=== PATIENT | female | born 1965 | race Caucasian/White ===

== ENCOUNTER 2018-02-17 13:01 | Outpatient (REF) | payer BC, SELFPAY ==
[2018-02-17 13:51] LABS: ALT 17 U/L (12-78); AST 16 U/L (15-37); Albumin 3.7 g/dL (3.4-5.0); Alkaline Phosphatase 108 U/L (46-116); BUN 14 mg/dL (7-18); Bilirubin, Total 0.4 mg/dL (0.2-1.0); CREATININE 0.96 mg/dL (0.55-1.02); Calcium 8.9 mg/dL (8.5-10.1); Chloride 105 mmol/L (98-107); Cholesterol 212 mg/dL (50-200); Glucose 102 mg/dL (70-100); HDL Cholesterol 69 mg/dL (40-60); LDL CHOLESTEROL 136 mg/dL (<100); Potassium 4.1 mmol/L (3.5-5.1); Sodium 143 mmol/L (136-145); Total Protein 7.3 g/dL (6.4-8.2); Triglyceride 66 mg/dL (30-150)
[2018-02-18 10:17] LABS: Hepatitis C Ab w Rflx HCV PCR Negative (NEGAT)
== END 2018-02-17 13:21 ==
LOC: NCHCN 13:01
PROVIDERS: PCP Internal Medicine; Visit Provider Nurse Practitioner
DX: I10 Essential (primary) hypertension (principal); Z13.220 Encounter for screening for lipoid disorders; Z11.59 Encounter for screening for other viral diseases
CPT/HCPCS: 80053; 80061; 83721; 86803

== ENCOUNTER 2018-03-24 01:16 | Outpatient (CLI) | payer BC, SELFPAY ==
--- NOTE | 2018-03-24 13:00 | DI.MAMMO_ITS ---
SYMPTOM/DIAGNOSIS: SCREENING, Z12.39 MAMMOGRAMS: Mammograms were interpreted according to the usual protocol including computer analysis with CAD system, tomosynthesis and C view imaging. Comparison with prior examinations. Breast density C. No suspicious masses or microcalcifications are seen. There is no definite evidence of malignancy. IMPRESSION: Negative mammogram. Routine screening is recommended. Category I. MQSA ASSESSMENT OF FINDINGS: Negative. Category 1. Patient will receive a letter notifying them of these results. Bi-RADS category C. The breasts are heterogeneously dense, which may obscure small masses.
== END 2018-03-24 01:36 ==
PROVIDERS: PCP Internal Medicine; Visit Provider Nurse Practitioner
DX: Z12.31 Encounter for screening mammogram for malignant neoplasm of breast (principal)
CPT/HCPCS: 77063; 77067

== ENCOUNTER 2018-04-29 15:33 | Outpatient (REF) | payer BC, SELFPAY ==
--- NOTE | 2018-04-29 14:00 | PAPFT_PTH ---
PATIENT: Yumi Souza LOC: [facility] U#:[id number] AGE/SX: 52/F ROOM: RE04/29/[address]: Gogo Doss : 1965 BED: DIS: 04/29/2018 SPEC #: [id number] RECD: 04/29/18 17:23 STATUS: SHANNAN REWesly #: [id number] KYREE: 04/29/18 14:[address]: Gogo Doss DEPT: [facility] Cytology RECD BY: Joy Sanchez ENTERED: 04/29/18 17:24 SP TYPE: PAPFT OTHR DR: John Zarate Tissues: 1 - CX/ENDOCX FOR PAP SMEARS Procedures: PAP THIN PREP/UVM Screening HPV DNA PROBE Comments: [id number]
== END 2018-04-29 15:53 ==
LOC: LBN 15:33
PROVIDERS: PCP Internal Medicine; Visit Provider Obstetrics & Gynecology Gynecology
DX: Z12.4 Encounter for screening for malignant neoplasm of cervix (principal); Z11.51 Encounter for screening for human papillomavirus (HPV)
CPT/HCPCS: 88142; 87624

== ENCOUNTER 2019-01-19 10:03 | Outpatient (REF) | payer BC, SELFPAY ==
[2019-01-19 13:23] LABS: ALT 37 U/L (14-59); AST 25 U/L (15-37); Albumin 3.8 g/dL (3.4-5.0); Alkaline Phosphatase 133 U/L (46-116); Anion Gap 9.8 mmol/L (3-11); BUN 15 mg/dL (7-18); Bilirubin, Total 0.3 mg/dL (0.2-1.0); CO2 29.2 mmol/L (21.0-32.0); CREATININE 0.92 mg/dL (0.55-1.02); Calcium 9.5 mg/dL (8.5-10.1); Calculated LDL 130 mg/dL; Chloride 105 mmol/L (98-107); Cholesterol 203 mg/dL (50-200); Glucose 98 mg/dL (70-100); HDL Cholesterol 50 mg/dL (40-60); Magnesium 2.2 mg/dL (1.8-2.4); Potassium 4.1 mmol/L (3.5-5.1); Sodium 144 mmol/L (136-145); Total Protein 7.5 g/dL (6.4-8.2); Triglyceride 116 mg/dL (30-150); Vitamin B12 1544 pg/mL (193-986)
[2019-01-20 16:38] LABS: Lamotrigine 1.8 mcg/mL (2.5 - 15.0)
== END 2019-01-19 10:23 ==
LOC: NCHCN 10:03
PROVIDERS: PCP Internal Medicine; Visit Provider Nurse Practitioner Family
DX: Z00.00 Encounter for general adult medical examination without abnormal findings (principal); I10 Essential (primary) hypertension; R73.01 Impaired fasting glucose; R56.9 Unspecified convulsions; N95.1 Menopausal and female climacteric states; R06.83 Snoring; F33.9 Major depressive disorder, recurrent, unspecified; Z51.81 Encounter for therapeutic drug level monitoring; Z79.899 Other long term (current) drug therapy
CPT/HCPCS: 80053; 80061; 80175; 82607; 83735

== ENCOUNTER 2019-01-27 13:13 | Outpatient (REF) | payer BC, SELFPAY ==
[2019-01-27 22:20] LABS: GGT 33 U/L (5-55)
[2019-01-28 05:20] LABS: Vitamin D 25 Total 77.1 ng/ml (30-100)
== END 2019-01-27 13:33 ==
LOC: NCHCO 13:13
PROVIDERS: PCP Internal Medicine; Visit Provider Nurse Practitioner Family
DX: R74.8 Abnormal levels of other serum enzymes (principal)
CPT/HCPCS: 82306; 82977

== ENCOUNTER 2020-02-23 18:50 | Outpatient (REF) | payer BC, SELFPAY ==
[2020-02-23 22:27] LABS: Abs Immature Grans 0.01 10^3/uL (0.0-0.06); Absolute Basophil Count 0.02 10^3/uL (0.0-0.2); Absolute Eosinophil Count 0.13 10^3/uL (0.0-0.7); Absolute Lymphocyte Count 1.89 10^3/uL (1.2-3.4); Absolute Monocyte Count 0.41 10^3/uL (0.1-0.8); Absolute Neutrophil Count 2.65 10^3/uL (1.2-6.7); Basophils % 0.4; Eosinophils % 2.5; HCT 38.2 % (36.0-46.0); HGB 12.4 g/dL (11.2-15.7); Immature Grans % 0.2; MCH 29.9 pg (27.0-33.0); MCHC 32.5 % (32.0-36.0); MPV 10.7 fL (8.0-11.0); Neutrophils % 51.9; Nucleated RBC 0 %; Platelet Count 233 10^3/uL (130-400); RBC 4.15 10^6/uL (3.93-5.22); RDW 12.8 % (11.7-14.6); RDW-SD 42.9 fL; WBC 5.11 10^3/uL (4.4-10.8)
[2020-02-23 23:02] LABS: ALT 24 U/L (14-59); AST 21 U/L (15-37); Albumin 3.8 g/dL (3.4-5.0); Alkaline Phosphatase 119 U/L (46-116); Anion Gap 9.1 mmol/L (3-11); BUN 16 mg/dL (7-18); Bilirubin, Total 0.2 mg/dL (0.2-1.0); CO2 28.9 mmol/L (21.0-32.0); CREATININE 1.02 mg/dL (0.55-1.02); Calcium 8.9 mg/dL (8.5-10.1); Calculated LDL 133 mg/dL (<100); Chloride 104 mmol/L (98-107); Cholesterol 204 mg/dL (<200); Estimated GFR 56.06 (mL/min/1.73m2); Glucose 93 mg/dL (74-106); HDL Cholesterol 58 mg/dL (40-60); Magnesium 2.2 mg/dL (1.8-2.4); Potassium 3.8 mmol/L (3.5-5.1); Sodium 142 mmol/L (136-145); Total Protein 7.1 g/dL (6.4-8.2); Triglyceride 68 mg/dL (<150)
[2020-02-23 23:27] LABS: PHOSPHORUS 4.5 mg/dL (2.6-4.7)
== END 2020-02-23 19:10 ==
LOC: NCHCN 18:50
PROVIDERS: PCP Internal Medicine; Visit Provider Family Medicine
DX: R74.8 Abnormal levels of other serum enzymes (principal); C21.0 Malignant neoplasm of anus, unspecified
CPT/HCPCS: 80053; 80061; 83735; 84100; 85025

== ENCOUNTER 2020-04-12 01:47 | Outpatient (CLI) | payer BC, SELFPAY ==
--- NOTE | 2020-04-12 | DI.DEXA_ITS ---
EXAM: XR DEXA BONE DENSITY W/WO ALCON CLINICAL HISTORY: ELEVATED ALK PHOS,R74.8 TECHNIQUE: RFinity Horizon C densitometer. COMPARISON: No exams were available for comparison FINDINGS: The bone mineral density measurements of the lumbar spine correspond to a total T-score of -3.3, in t he osteoporotic range. The bone mineral density measurements of the left hip correspond to a total T-score of -1.3 and a fem oral neck T-score of -1.5, in the osteopenic range. The left forearm bone mineral density measurements correspond to a T-score of the distal 3rd of -1.3, also consistent with osteopenia. The lateral industrial engineering intern view of the thoracic and lumbar spine shows no evidence of compression fractures. IMPRESSION: Osteopenia of the left hip and left forearm. Osteoporosis of the lumbar spine.
--- NOTE | 2020-04-12 16:11 | DI.MAMMO_ITS ---
EXAM: MG MAMMO SCREENING CLINICAL HISTORY: SCREENING,Z12.31. TECHNIQUE: Bilateral full field digital CC and MLO mammographic images were obtained with 3D tomosyn thesis and utilizing computer aided detection (CAD). COMPARISON: Prior mammograms dating back to 2014, the most recent being March 2018. FINDINGS: The fibroglandular tissue is again noted to be dense, this decreasing the sensitivity mammogram for f inding hidden underlying lesions. There are no spiculated masses nor malignant appearing microcalcification groups. Benign micro and ma crocalcifications are again noted in both breasts including benign appearing microcalcification group s. There is no significant architectural distortion nor skin thickening-retraction. IMPRESSION: Dense bilateral fibroglandular tissue. No obvious radiographic evidence of malignancy. BI-RADS Category 2 - Benign Findings Breast Density - Category C - Heterogeneously dense Breast density Category C or D implies that the patient has dense breast tissue. Dense breast tissue can make it harder to find cancer on a mammogram. Dense breast tissue is also associated with an incr eased risk of breast cancer. This information about the result of the mammogram report was provided to the patient to raise their awareness. Use this report when you speak with the patient about their risks for breast cancer, which includes their family history. At that time, you may recommend additional screening tests (Ultrasoun d or MRI) as these tests may add significant information. A negative radiographic report should not delay biopsy if a dominant or clinically suspicious mass is present. Up to ten percent of cancers are not identified on mammography. A negative report may reinforce clinical impression. Adenosis and dense breasts may obscure an underlying neoplasm. False positive reports average 6 to 10%. Patient will receive a letter notifying them of these results.
== END 2020-04-12 02:07 ==
PROVIDERS: PCP Internal Medicine; Visit Provider Family Medicine
DX: Z12.31 Encounter for screening mammogram for malignant neoplasm of breast (principal); M81.0 Age-related osteoporosis without current pathological fracture; M85.88 Other specified disorders of bone density and structure, other site; R74.8 Abnormal levels of other serum enzymes
CPT/HCPCS: 77063; 77067; 77080

== ENCOUNTER 2020-08-17 15:19 | Outpatient (REF) | payer BC, SELFPAY ==
[2020-08-17 20:34] LABS: Bilirubin Negative (Negative); Blood Negative (Negative); Clarity Clear (Clear); Glucose Negative (Negative); Ketones Negative (Negative); Leukocyte Esterase Small (Negative); Nitrite Negative (Negative); Specific Gravity 1.015 (1.005-1.025); Urobilinogen 0.2 EU/dL (Up TO 0.2)
[2020-08-17 20:49] LABS: Bacteria Negative HPF (Negative); C & S Indicated? Yes; Casts Negative LPF (Negative); Crystals Negative HPF (Negative); Epithelial Cells Few HPF (Negative); Mucus Negative (Negative); Other Cells Negative (Negative); RBC 0-2 HPF (0-2); WBC 0-2 HPF (0-5)
== END 2020-08-17 15:20 | disposition home or self-care (01) ==
LOC: NCHCN 15:19
PROVIDERS: PCP Internal Medicine; Visit Provider Nurse Practitioner Family
DX: R30.0 Dysuria (principal)
CPT/HCPCS: 87077; 81003; 81015; 87086; 87186

== ENCOUNTER 2021-01-12 13:02 | Outpatient (REF) | payer BC, SELFPAY ==
[2021-01-12 21:04] LABS: ALT 28 U/L (14-59); AST 17 U/L (15-37); Alkaline Phosphatase 125 U/L (46-116); BUN 13 mg/dL (7-18); Bilirubin, Total 0.3 mg/dL (0.2-1.0); CREATININE 0.9 mg/dL (0.55-1.02); Calcium 9.3 mg/dL (8.5-10.1); Chloride 108 mmol/L (98-107); Glucose 97 mg/dL (74-106); Magnesium 2.1 mg/dL (1.8-2.4); Potassium 4.5 mmol/L (3.5-5.1); Sodium 145 mmol/L (136-145); Total Protein 7.6 g/dL (6.4-8.2); Vitamin B12 491 pg/mL (193-986)
[2021-01-16 13:18] LABS: Lamotrigine 2.3 mcg/mL (2.5 - 15.0)
== END 2021-01-12 13:03 | disposition home or self-care (01) ==
LOC: NCHCN 13:02
PROVIDERS: PCP Internal Medicine; Visit Provider Nurse Practitioner Family
DX: R74.8 Abnormal levels of other serum enzymes (principal); M81.0 Age-related osteoporosis without current pathological fracture
CPT/HCPCS: 80053; 80175; 82607; 83735

== ENCOUNTER 2021-12-24 16:10 | Outpatient (REF) | payer BC, SELFPAY ==
[2021-12-24 15:38] LABS: Vitamin D 25 Total 57.8 ng/mL (30-100)
[2021-12-24 15:42] LABS: ALT 36 U/L (14-59); AST 23 U/L (15-37); Albumin 4.1 g/dL (3.4-5.0); Alkaline Phosphatase 108 U/L (46-116); Anion Gap 9.7 mmol/L (3-11); BUN 15 mg/dL (7-18); Bilirubin, Total 0.3 mg/dL (0.2-1.0); CO2 28.3 mmol/L (21.0-32.0); CREATININE 0.9 mg/dL (0.55-1.02); Calcium 9.7 mg/dL (8.5-10.1); Chloride 102 mmol/L (98-107); Glucose 104 mg/dL (74-106); Magnesium 2.3 mg/dL (1.8-2.4); Potassium 4.2 mmol/L (3.5-5.1); Sodium 140 mmol/L (136-145); Total Protein 8.5 g/dL (6.4-8.2); Vitamin B12 312 pg/mL (193-986)
[2021-12-26 12:58] LABS: Lamotrigine 2.3 mcg/mL (2.5 - 15.0)
== END 2021-12-24 16:11 | disposition home or self-care (01) ==
LOC: NCHCN 16:10
PROVIDERS: PCP Internal Medicine; Visit Provider Nurse Practitioner Family
DX: M81.0 Age-related osteoporosis without current pathological fracture (principal); I10 Essential (primary) hypertension; G47.00 Insomnia, unspecified; C21.0 Malignant neoplasm of anus, unspecified; K22.70 Barrett's esophagus without dysplasia; R56.9 Unspecified convulsions; F41.9 Anxiety disorder, unspecified
CPT/HCPCS: 80053; 80175; 82306; 82607; 83735

== ENCOUNTER 2022-02-04 10:00 | Day surgery (SDC) | payer BC, SELFPAY ==
--- NOTE | 2022-02-03 18:21 | W.PM.DSUDISC ---
Date of service: 02/04/22 Time of Service: 11:31 Discharge Plan Disposition Patient Disposition: HOME Condition: Good Discharge Details Reason For Visit: EGD Attending Provider: Michael Dobson Primary Care Provider: John Zarate Home Meds and New Rx's Prescriptions: Continued Daily Multiple 1 EACH tablet 1 ea PO DAILY sumatriptan succinate 50 mg tablet See Rx Instructions PO .COMPLEX Qty: 30 1RF Dose Instruction: take 1 tab at onset of headache; if no relief may repeat 1 tab in 2hr; max = 4 tabs/day (24hr) PO Rx Instructions: take 1 tab at onset of headache; if no relief may repeat 1 tab in 2hr; max = 4 tabs/day (24hr) PO cholecalciferol (vitamin D3) 25 mcg (1,000 unit) capsule 25 mcg PO DAILY calcium-vitamin D2-soybean 500-100-28 mg-units-mg tablet 1 tab PO diphenhydramine-acetaminophen [Tylenol PM Extra Strength] 25-500 mg tablet 1 tab PO QHS PRN loratadine [Claritin] 10 mg tablet 10 mg PO DAILY omeprazole 20 mg capsule,delayed release(DR/EC) 20 mg PO HS valacyclovir [Valtrex] 1 gram tablet 1,000 mg PO DAILY PRN melatonin-lemon balm leaf extr 10-1 mg tablet 1 tab PO HS clobetasol 0.05 % cream 1 applic topical BID PRN ibuprofen [Advil] 200 mg tablet 400 mg PO Q6H PRN latanoprost 0.005 % drops 1 drp ophthalmic (eye) DAILY lamotrigine 200 MG tablet 100 mg PO HS citalopram 20 mg tablet 20 mg PO DAILY Discontinued polyethylene glycol 3350 17 gram/dose powder 238 g PO ONCE Qty: 238 0RF Rx Instructions: take per colonoscopy instructions bisacodyl [Dulcolax (bisacodyl)] 5 mg tablet,delayed release (DR/EC) 5 mg PO ONCE Qty: 4 0RF Rx Instructions: take per colonoscopy instructions Discharge Instructions Instructions: Holm Esophagus (GEN) Additional Instructions: 1. If tolerated, consume a soft, low fiber diet for 1-2 days. 2. You may experience a sore throat for 24 to 48 hours. You may use throat lozenges or gargle with warm salt water to relieve the discomfort. 3. Because air was put into your stomach during the procedure, you may experience some belching. 4. Go directly to the emergency room if you notice any of the following: Develop chills (warm to touch), or if you have a thermometer and your temperature is above 101 Difficulty breathing or difficultly swallowing Persistent vomiting Severe abdominal pain, other than gas cramps Severe chest pain Black, tarry stools Any bleeding ? exceeding one tablespoon 5 Call your physician if the site where your intravenous was started becomes red, swollen, painful, and warm to touch. 6. Your physician has reviewed your pre-procedure medications. Please continue to take those medications as previously ordered. You will be given specific information/education regarding any changes to your medications before leaving. Activity:: Activity as Tolerated Activity:: Activity as Tolerated Equipment/Supplies:: No Equipment Needed Diet:: As Tolerated DS: Diagnosis Discharge Diagnosis (1) History of Holm's esophagus: Status: Acute Asessment and Plan: I will notify you when the results of the biopsies are available, to plan for the next steps in monitoring the Holm's esophagus. In the meantime continue to take your omeprazole to keep your symptoms under control.
--- NOTE | 2022-02-03 18:25 | COLE_ITS ---
Date of service: 02/04/22 Time of Service: 11:34 Colonoscopy Report Date of procedure: 02/04/22 Pre-op diagnosis general: Holm's esophagus Post-op diagnosis procedure note: same Procedure: Diagnostic EGD with biopsies Surgeon: Michael Dobson Anesthesia Type: General:No Airway Estimated blood loss (mL): 10 Pathology: other (Four-quadrant biopsies of GE junction) Complications: None Disposition: same day Indications: Yumi is a 56-year-old woman with history of Holm's esophagus. She is here for for surveillance EGD with biopsies Procedure Start Time: :18 Procedure End Time: :24 Findings: Short segment Holm's esophagus Procedure Description: After the initiation of monitored anesthetic care, and with the assistance of a bite block, I advanced a standard gastroscope through the mouth past the hypopharynx and into the esophagus.? Under the direct vision of the scope, I advanced down the esophagus into the stomach.? Once I entered the stomach, I performed a brief inspection, followed by retroflexion towards the gastric cardia.? This appeared normal.? After that, I gently advanced the scope around the incisura angularis and examined the pylorus.? This also appeared normal.? Next, I advanced the scope through the pylorus into the duodenum.? The mucosa w as pink and healthy appearing.? There were no abnormalities.? I was able to visualize bile draining into the duodenum through the ampulla Vater. ?Next, I began retracting the endoscope.? I brought the camera back into the stomach. There were 2 gastric polyps in the body of the stomach. I performed polypectomy with cold forceps.? I then gently desufflated some of the stomach, and withdrew the endoscope into the distal esophagus. The GE junction was at 40 cm. There was a short segment of Holm's esophagus extending from about 38 cm. I performed four-quadrant biopsy. ?Finally, I withdrew the scope along the length of the esophagus taking great care to examine the entirety of the mucosa.? I did not appreciate any abnormalities.
[2022-02-04 10:05] VITALS: BP 140/72; PULSE 88; RESP 18; TEMP 36.2; O2SAT 100
[2022-02-04] MEDS: Lactated Ringers 1,000 ML 80 ML IV (10:41)
--- NOTE | 2022-02-04 10:43 | W.ANESPRE ---
General Info Date of Service Date Performed: 02/04/22 Height: 5 ft 3 in Weight: 71.2 kg Body Mass Index (BMI): 27.8 Surgical Procedure: Operation Date: 02/04/22 11:20 Proposed Procedure Side Surgeon p Gastroscopy Michael Dobson MD Meds Allergies and Home Medications Allergies Allergy/AdvReac Type Severity Reaction Status Date / Time No Known Allergies Allergy Unverified 02/04/22 10:21 Home Medication Medication Instructions Recorded lamotrigine 200 mg tablet 100 mg PO HS 08/09/12 multivitamin-ferrous 1 ea PO DAILY 04/10/15 fumarate-folic acid 18 mg-400 mcg tablet (Daily Multiple) sumatriptan succinate 50 mg tablet See Rx Instructions PO .COMPLEX 05/04/18 #30 tabs calcium-vitamin D2-soybean 500 1 tab PO 01/08/22 mg-100 unit-28 mg tablet cholecalciferol (vitamin D3) 25 25 mcg PO DAILY 01/08/22 mcg (1,000 unit) capsule clobetasol 0.05 % topical cream 1 applic topical BID PRN 01/08/22 diphenhydramine 25 1 tab PO QHS PRN 01/08/22 mg-acetaminophen 500 mg tablet (Tylenol PM Extra Strength) ibuprofen 200 mg tablet (Advil) 400 mg PO Q6H PRN 01/08/22 latanoprost 0.005 % eye drops 1 drp ophthalmic (eye) DAILY 01/08/22 loratadine 10 mg tablet (Claritin) 10 mg PO DAILY 01/08/22 melatonin 10 mg-lemon balm leaf 1 tab PO HS 01/08/22 extract 1 mg tablet omeprazole 20 mg capsule,delayed 20 mg PO HS 01/08/22 release valacyclovir 1 gram tablet 1,000 mg PO DAILY PRN 01/08/22 (Valtrex) citalopram 20 mg tablet 20 mg PO DAILY 01/28/22 Current Visit Medications: Current Medications Generic Name Dose Route Start Last Admin Trade Name Freq PRN Reason Stop Dose Admin Hyoscyamine Sulfate 0.125 mg 02/03/22 18:25 Hyoscyamine 0.125 Mg Sl/Oral/Chew SL DIRECTED PRN Ringer's Solution 1,000 mls @ 80 mls/hr 02/04/22 06:00 02/04/22 10:41 IV 02/13/22 23:59 80 mls/hr INFUSION JAVID Administration IV Miscellaneous Supplies 1 each 02/04/22 06:00 Iv Access IV 02/13/22 23:59 DIRECTED JAVID Ondansetron HCl 4 mg 02/03/22 18:25 Ondansetron 4 Mg/2 Ml Vial IVP Q4H PRN PRN Nausea / Vomiting Sodium Chloride 0 ml 02/04/22 06:00 Normal Saline Flush 10 Ml Syr IV 02/13/22 23:59 PRN PRN Sodium Chloride 0 ml 02/04/22 06:00 Normal Saline 10 Ml Vial IJ 02/13/22 23:59 DIRECTED PRN Sterile Water 0 ml 02/04/22 06:00 Water,Injection,Sterile 10 Ml Vial IJ 02/13/22 23:59 DIRECTED PRN PFSH Active Problems Active Problems: Problem Status Onset Code History of creation of ostomy Z93.9 Hepatic hemangioma D18.03 Hypertension I10 Glaucoma H40.9 History of Holm's esophagus Z87.19 Insomnia Depression Seizure disorder Squamous cell carcinoma of anal margin ~2012 Constipation by outlet obstruction Menstrual migraine 01/25/13 G43.829 Medical History Medical History Anxiety Menstrual migraine Long-term OCP use. Will cease 04/2018 Osteoporosis Surgical History Surgical History History of colonoscopy (~2016) History of esophagogastroduodenoscopy (EGD) (~2018) Tobacco Smoking/Tobacco Use Status: Never Alcohol Alcohol Intake: current Alcohol intake frequency: a few times a week Substance Use Substance use: Never Substance use type: does not use Prental History History 2 Para 2 Hx # Term Pregnancies 2 Multiple births Hx # Pregnancies Ectopic pregnancies AB induced Hx Number of Living Children 1 AB spontaneous Vital Signs and Lab Results Vital Signs Most Recent Vital Signs in EMR: Most Recent Vital Signs Temp Pulse Resp BP Pulse Ox 36.2 C L 88 18 140/72 100 02/04/22 10:05 02/04/22 10:05 02/04/22 10:05 02/04/22 10:05 02/04/22 10:05 Lab Results Blood Type / Crossmatch: No Data to Display Complete Blood Count: No Data to Display Complete Metabolic Panel: No Data to Display Liver Function Panel: No Data to Display Coagulation Panel: No Data to Display Cardiac Panel: No Data to Display Arterial Blood Gas: No Data to Display Venous Blood Gas: No Data to Display Pancreas Panel: No Data to Display Thyroid Panel: No Data to Display Infectious Disease: No Data to Display Blood Cultures: No Data to Display Toxicology Panel: No Data to Display Anesthesia Assessment and Plan Anesthesia History Personal History: No History of Anesthesia Complications Family History: No Family History of Anesthesia Complications Exercise Tolerance Exercise Tolerance: Metabolic Equivalents>4 Pertinent Negatives Pertinent Negatives: No Symptoms of GERD, No Major Cardiovascular Symptoms or Complaints and No Major Pulmonary Symptoms or Complaints Cardiac & Pulmonary Exam Cardiac Exam: Normal S1/S2 Heart Sounds Pulmonary Exam: Clear Bilateral Breath Sounds Implantable Cardiac Device Does patient have a Pacemaker or an ICD?: No Airway Exam Known Difficult Airway: No Mallampati Class: 1 Mouth Opening: Normal (> 3cm) Thyromental Distance: Greater than 3 cm Neck Range of Motion: Full ROM Neck Circumference: Normal Teeth Condition: Normal Dentition ASA Classification ASA Score: ASA 2 Emergency Case?: No NPO Status NPO Status: NPO Clears >2 hours, Solids >8 hours Anesthesia Plan Resuscitation Status: Full Code Anesthesia Technique: General Anesthesia Airway Planned: Natural Airway Monitors Used: Standard Monitors Preoperative Comments:: No seizure activity for several years
[2022-02-04 10:48] VITALS: BMI 27.8
--- NOTE | 2022-02-04 11:20 | ESO_PTH ---
PATIENT: Yumi Souza LOC: [facility] U#:[id number] AGE/SX: 56/F ROOM: RE02/04/[address]: Michael Dobson MD : 1965 BED: DIS: 02/04/2022 SPEC #: [id number] RECD: 02/04/22 13:21 STATUS: SHANNAN RE #: [id number] KYREE: 02/04/22 11:[address]: Michael Dobson DEPT: Surgical Specimen RECD BY: Joy Sanchez ENTERED: 02/04/22 13:22 SP TYPE: Eso OTHR DR: John Zarate Tissues: 1 - ESOPHAGUS BIOPSY 2 - ESOPHAGUS BIOPSY Procedures: GROSS AND MICRO LEVEL 4 Comments: [id number]
[2022-02-04 11:31] VITALS: BP 107/58; PULSE 78; RESP 17; TEMP 36.6; O2SAT 94
[2022-02-04 11:55] VITALS: BP 123/64; PULSE 69; RESP 18; TEMP 36.6; O2SAT 100
--- NOTE | 2022-02-04 12:28 | W.ANESPOSTOP ---
Postoperative Evaluation Date, Time and Location Date Performed: 02/04/22 Time Performed: 11:55 Patient Location: Day Surgery Unit Vital Signs Most Recent Imported Vital Signs: Most Recent Vital Signs Temp Pulse Resp BP Pulse Ox 36.6 C 69 18 123/64 100 02/04/22 11:55 02/04/22 11:55 02/04/22 11:55 02/04/22 11:55 02/04/22 11:55 Pain Score Most Recent Pain Score: Most Recent Pain Score Pain Level 0 02/04/22 11:55 Assessment Mental Status: Awake (Alert & Oriented to Patient Baseline) Airway and Respiratory Function: Patent airway with normal (patient baseline) respiratory exam Cardiovascular Function: Hemodynamically Stable Hydration Status: Adequately Hydrated Nausea & Vomiting: No Nausea or Vomiting Pain: Pt. Denies Any Pain Peripheral Nerve Block: Patient did not receive a nerve block
== END 2022-02-04 12:08 | disposition home or self-care (01) ==
PROVIDERS: PCP Internal Medicine; Visit Provider Surgery
PROC: 0DJ68ZZ Inspection of Stomach, Via Natural or Artificial Opening Endoscopic (ICD-10-PCS; CPT 43235; principal; 2022-02-04 11:15)
DX: K22.70 Barrett's esophagus without dysplasia (principal); K31.7 Polyp of stomach and duodenum; K22.89 Other specified disease of esophagus
CPT/HCPCS: 43239; 88305; J2405

== ENCOUNTER 2023-01-02 14:05 | Outpatient (REF) | payer BC, SELFPAY ==
[2023-01-02 17:02] LABS: Vitamin D 25 Total 49.3 ng/mL (30-100)
[2023-01-02 17:28] LABS: BUN 22 mg/dL (7-18); CREATININE 0.8 mg/dL (0.55-1.02); Calcium 9.5 mg/dL (8.5-10.1); Calculated LDL 139 mg/dL (<100); Chloride 107 mmol/L (98-107); Cholesterol 205 mg/dL (<200); Estimated GFR 84.82 (mL/min/1.73m2); Glucose 95 mg/dL (74-106); HDL Cholesterol 53 mg/dL (40-60); Magnesium 2.4 mg/dL (1.8-2.4); Potassium 5.3 mmol/L (3.5-5.1); Sodium 146 mmol/L (136-145); Triglyceride 69 mg/dL (<150); Vitamin B12 566 pg/mL (193-986)
[2023-01-04 12:16] LABS: Lamotrigine 3.5 mcg/mL (3.0-15.0)
== END 2023-01-02 14:06 | disposition home or self-care (01) ==
LOC: NCHCN 14:05
PROVIDERS: PCP Internal Medicine; Visit Provider Nurse Practitioner Family
DX: M81.0 Age-related osteoporosis without current pathological fracture (principal); R74.8 Abnormal levels of other serum enzymes; Z86.79 Personal history of other diseases of the circulatory system; Z00.00 Encounter for general adult medical examination without abnormal findings
CPT/HCPCS: 80048; 80061; 80175; 82306; 82607; 83735

== ENCOUNTER → 2023-02-03 02:53 | Outpatient (CLI) | payer BC, SELFPAY ==
--- NOTE | 2023-02-03 14:10 | DI.MAMMO_ITS ---
Exam(s) MAMMO SCREENING EXAM: MAMMO SCREENING CLINICAL HISTORY: SCREENING, Z12.31 TECHNIQUE: Mammograms were interpreted according to the usual protocol including computer analysis w [employer] CAD system, tomosynthesis and C-view imaging. COMPARISON: 2014 through 2020 FINDINGS: The breasts are composed of heterogeneously dense fibroglandular densities, Breast Density category C . No suspicious masses or suspicious microcalcifications are seen. Benign calcifications again noted i n both breasts. No skin thickening or abnormal axillary lymph nodes are seen. There has been no significant change from prior exams. IMPRESSION: BI-RADS Category 1, Negative mammogram. BI-RADS Category 2 - Benign Findings Yearly screening mammography is recommended. Breast Density Category C, heterogeneously Dense. The mammogram demonstrates the patient's breast tissue is dense. Dense breast tissue is very common a nd is not abnormal but dense breast tissue can make it harder to find cancer on a mammogram. Also, de nse breast tissue may increase breast cancer risk. This information about the result of the mammogram report was provided to the patient to raise their awareness. Use this report when you speak with the patient about their risks for breast cancer, which includes their family history. At that time, you may recommend additional screening tests (Ultrasound or MRI) as they might be useful based on their r isk. A negative radiographic report should not delay biopsy if a dominant or clinically suspicious mass is present. Up to ten percent of cancers are not identified on mammography. A negative report may reinforce clinical impression. Adenosis and dense breasts may obscure an underlying neoplasm. False positive reports average 6 to 10%.
== END ==
PROVIDERS: PCP Internal Medicine; Visit Provider Nurse Practitioner Family
DX: Z12.31 Encounter for screening mammogram for malignant neoplasm of breast (principal); R92.333 Mammographic heterogeneous density, bilateral breasts
CPT/HCPCS: 77063; 77067

== ENCOUNTER 2023-04-24 15:50 | Outpatient (REF) | payer BC, SELFPAY ==
[2023-04-24 22:11] LABS: Anion Gap 10.8 mmol/L (3-11); BUN 19 mg/dL (7-18); CO2 28.2 mmol/L (21.0-32.0); CREATININE 0.8 mg/dL (0.55-1.02); Chloride 105 mmol/L (98-107); Estimated GFR 84.82 (mL/min/1.73m2); Glucose 111 mg/dL (74-106); Magnesium 2.1 mg/dL (1.8-2.4); Potassium 4.1 mmol/L (3.5-5.1); Sodium 144 mmol/L (136-145); TSH (W/Ref FT4) 2.18 uIU/mL (0.36-3.74)
== END 2023-04-24 15:51 | disposition home or self-care (01) ==
LOC: NCHCN 15:50
PROVIDERS: PCP Internal Medicine; Visit Provider Nurse Practitioner Family
DX: E87.0 Hyperosmolality and hypernatremia (principal); R00.2 Palpitations
CPT/HCPCS: 80048; 83735; 84443

== ENCOUNTER → 2023-06-26 04:49 | Outpatient (CLI) | payer BC, SELFPAY ==
--- NOTE | 2023-06-26 | DI.DEXA_ITS ---
Exam(s) XR DEXA BONE DENSITY W/WO ALCON EXAM: XR DEXA BONE DENSITY W/WO ALCON CLINICAL HISTORY: M81.0 Age related osteoporosis w/o current pathologicial fracture TECHNIQUE: COMPARISON: CR XR DEXA BONE DENSITY W/WO ALCON from 04/12/2020 FINDINGS: Lateral Spine Image: Unremarkable. No compression deformities identified. Left hip: Total T-Score: -1.5. This compares to -1.3 on the prior examination. Total Z-Score: -0.6 T- and Z-scores: Findings are consistent with osteopenia. Lumbar Spine: Total T-Score: -3.2. This compares to -3.3 on the prior examination. Total Z-Score: -1.8 T- and Z-scores: Findings are consistent with osteoporosis. IMPRESSION: Osteoporosis in the lumbar spine.
== END ==
LOC: DI 04:50
PROVIDERS: PCP Internal Medicine; Visit Provider Nurse Practitioner Family
DX: M81.0 Age-related osteoporosis without current pathological fracture (principal); M85.88 Other specified disorders of bone density and structure, other site
CPT/HCPCS: 77080

== ENCOUNTER 2023-08-28 14:07 | Outpatient (REF) | payer BC, SELFPAY ==
--- NOTE | 2023-08-28 13:10 | PAPFT_PTH ---
PATIENT: Yumi Souza LOC: [facility] U#:[id number] AGE/SX: 58/F ROOM: RE08/28/[address]: Gogo Doss : 1965 BED: DIS: 08/28/2023 SPEC #: [id number] RECD: 08/28/23 18:13 STATUS: SHANNAN REQ #: [id number] KYREE: 08/28/23 13:[address]: Gogo Doss DEPT: [facility] Cytology RECD BY: Joy Sanchez ENTERED: 08/28/23 18:13 SP TYPE: PAPFT JESSE DR: Mis Kidd Tissues: 1 - CX/ENDOCX FOR PAP SMEARS Procedures: PAP THIN PREP/UVM Screening HPV DNA PROBE Comments: [id number] (HPV 16 & 18/45)
== END 2023-08-28 14:08 | disposition home or self-care (01) ==
LOC: LBN 14:07
PROVIDERS: PCP Nurse Practitioner Family; Visit Provider Obstetrics & Gynecology Gynecology
DX: Z12.4 Encounter for screening for malignant neoplasm of cervix (principal); Z11.51 Encounter for screening for human papillomavirus (HPV); R87.810 Cervical high risk human papillomavirus (HPV) DNA test positive
CPT/HCPCS: 88142; 87624

== ENCOUNTER 2023-11-14 07:41 | Day surgery (SDC) | payer BC, SELFPAY ==
--- NOTE | 2023-11-13 13:15 | W.PREOPHP ---
Assessment and Plan Assessment and plan (1) Encounter for screening colonoscopy: Status: Acute Assessment and plan: Yumi had another chance to ask any questions about the procedure. I explained the risks and the benfits of colonoscopy and we can proceed as planned. History of Present Illness History of Present Illness Chief Complaint: screening colonoscopy Narrative: 58 y/o female with history of anal cancer (s/p chemo/radiation in 2012; colostomy revision and resetting and repair of parastomal hernia), depression, HTN, seizure disorder (last seizures was in 2005) presents for colonoscopy screening pre-op. Her last screening was in 2015 and was unremarkable With recommended follow up in 3-5 years. She denies a family history of colon cancer. She denies any changes in bowel habits including bloody or black tarry stools, abdominal pain, diarrhea or constipation. She denies constitutional symptoms. To provide some detail in the surgical history, she is undergone abdominal perineal resection, with an end colostomy. There is no rectal stump to evaluate today. She denies chest pain, palpitations, dyspnea or dyspnea with exertion. She denies prior history or family history of adverse reactions or complications with anesthesia. The patient denies any history of stroke, [place], bleeding or clotting disorders. She denies having any implanted metal in her body. Since her last office visit there have been no significant changes to the interval history. PFSH All Active Problems Encounter for screening colonoscopy (Acute) Osteoporosis (Chronic) History of creation of ostomy (Acute) Hepatic hemangioma (Acute) Hypertension (Chronic) Glaucoma (Chronic) History of Holm's esophagus (Acute) Insomnia (Acute) Depression (Chronic) Stable Menstrual migraine (Acute 01/25/13) Medical History Anxiety Surgical History History of rectal surgery removal of anus secondary to anal cancer. History of esophagogastroduodenoscopy (EGD) (~01/2022) 2019 History of colonoscopy (~2017) Family History Mother No problems noted. Father No problems noted. 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 Pets and animals: Yes Seatbelt use: always Do you feel safe at home: Yes Do you feel safe in your relationship?: Yes Female Reproductive History Menstrual control method: pills History History 2 Para 2 Hx # Term Pregnancies 2 Multiple births Hx # Pregnancies Ectopic pregnancies AB induced Hx Number of Living Children 1 AB spontaneous Meds Allergies and Home Medications Allergies Allergy/AdvReac Type Severity Reaction Status Date / Time No Known Allergies Allergy Verified 11/14/23 08:29 Home Medications ?Medication ?Instructions ?Recorded ?Confirmed ?Type lamotrigine 200 mg tablet 100 mg PO HS 08/09/12 11/14/23 History multivitamin-ferrous 1 ea PO DAILY 04/10/15 11/12/23 History fumarate-folic acid 18 mg-400 mcg tablet (Daily Multiple) calcium-vitamin D2-soybean 500 1 tab PO DAILY 01/08/22 11/14/23 History mg-100 unit-28 mg tablet cholecalciferol (vitamin D3) 25 25 mcg PO DAILY 01/08/22 11/14/23 History mcg (1,000 unit) capsule clobetasol 0.05 % topical cream 1 applic topical BID PRN 01/08/22 11/12/23 History diphenhydramine 25 1 tab PO QHS PRN 01/08/22 11/12/23 History mg-acetaminophen 500 mg tablet (Tylenol PM Extra Strength) ibuprofen 200 mg tablet (Advil) 400 mg PO Q6H PRN 01/08/22 11/12/23 History loratadine 10 mg tablet (Claritin) 10 mg PO DAILY 01/08/22 11/14/23 History melatonin 10 mg-lemon balm leaf 1 tab PO HS 01/08/22 11/12/23 History extract 1 mg tablet omeprazole 20 mg capsule,delayed 20 mg PO HS 01/08/22 11/14/23 History release valacyclovir 1 gram tablet 1,000 mg PO DAILY PRN 01/08/22 11/12/23 History (Valtrex) citalopram 20 mg tablet 20 mg PO DAILY 01/28/22 11/14/23 History Bacillus coagulans-inulin 1 1 cap PO DAILY 08/28/23 11/14/23 History billion cell-250 mg capsule (Probiotic with Prebiotic) Exam Const General: cooperative, healthy appearing and not in acute distress Neck Neck: normal visual inspection, no lymphadenopathy and supple Resp Effort & Inspection: normal respiratory effort Auscultation: clear to auscultation bilaterally Cardio Jugular venous pressure: no JVD Rate: regular rate Rhythm: regular rhythm Heart Sounds: S1 normal and S2 normal Neuro General: patient alert, patient awake and patient oriented x3 Psych Appearance: grossly normal
--- NOTE | 2023-11-13 13:18 | W.COLOREPORT ---
Date of service: 11/14/23 Time of Service: 10:27 Colonoscopy Report Date of procedure: 11/14/23 Pre-op diagnosis general: screening colonoscopy Post-op diagnosis procedure note: same Procedure: colonoscopy Surgeon: Michael Dobson Anesthesia Type: General:No Airway Estimated blood loss (mL): 0 Pathology: none sent Complications: None Disposition: same day Indications: Yumi is a 58 year old woman who needs her next screening colonoscopy Prep: Miralax/Dulcolax Procedure Start Time: 10:00 Procedure End Time: 10:19 Retraction Time: 6 Findings: Negative screening colonoscopy Procedure Description: After the induction of anesthesia, and with the patient in supine, I began by performing an external exam.? The skin surrounding the colostomy was healthy appearing, and the external portion of the colostomy looked fine. I performed a digital examination which felt normal. Next, using insufflation, I then advanced the colonoscope through the colostomy before advancing towards the cecum.? The quality of the prep was outstanding.? The scope was noted to be in the cecum by identification of the ileocecal valve and appendiceal orifice.? I then began withdrawing the colonoscope using repeated irrigation as necessary for full evaluation of the colonic mucosa. ?There was a single diverticula noted in the transverse colon. The remainder of the colon was totally normal and healthy appearing. I withdrew the camera, and replaced a colostomy device for stoma management. The patient was then allowed awaken from anesthetic and transferred to the day surgery unit.
--- NOTE | 2023-11-13 13:20 | W.PM.DSUDISC ---
Date of service: 11/14/23 Time of Service: 10:28 Discharge Plan Disposition Patient Disposition: Home Condition: Good Discharge Details Reason For Visit: screening colonoscopy Attending Provider: Michael Dobson Primary Care Provider: Mis Kidd Home Meds and New Rx's Prescriptions: Continued Probiotic with Prebiotic 1 billion-250 cell-mg capsule 1 cap PO DAILY Daily Multiple 1 EACH tablet 1 ea PO DAILY cholecalciferol (vitamin D3) 25 mcg (1,000 unit) capsule 25 mcg PO DAILY calcium-vitamin D2-soybean 500-100-28 mg-units-mg tablet 1 tab PO DAILY diphenhydramine-acetaminophen [Tylenol PM Extra Strength] 25-500 mg tablet 1 tab PO QHS PRN loratadine [Claritin] 10 mg tablet 10 mg PO DAILY omeprazole 20 mg capsule,delayed release(DR/EC) 20 mg PO HS valacyclovir [Valtrex] 1 gram tablet 1,000 mg PO DAILY PRN melatonin-lemon balm leaf extr 10-1 mg tablet 1 tab PO HS clobetasol 0.05 % cream 1 applic topical BID PRN ibuprofen [Advil] 200 mg tablet 400 mg PO Q6H PRN lamotrigine 200 MG tablet 100 mg PO HS citalopram 20 mg tablet 20 mg PO DAILY Discontinued bisacodyl [Dulcolax (bisacodyl)] 5 mg tablet,delayed release (DR/EC) 5 mg PO ONCE Qty: 4 0RF Rx Instructions: Take per colonoscopy instructions provided by ordering providers office polyethylene glycol 3350 17 gram/dose powder 17 g PO ONCE Qty: 238 0RF Rx Instructions: Take per colonoscopy instructions provided by ordering providers office Discharge Instructions Additional Instructions: Yumi, we were able to complete your colonoscopy today without any difficulty. Your prep was excellent, and I could see everything fine. I did not see any signs of tumors, polyps, or any other worrisome pathology. Typically, patients with a history of colorectal cancers are recommended to follow-up with routine screening colonoscopy every 5 years. If you have any questions at all, or need anything, please do not hesitate to ask. 1. If tolerated, consume a soft, low fiber diet for 1-2 days. 2[address] Do not drive, drink alcohol, operate machinery, make critical decisions, or do activities that require coordination or balance for 24 hours. 3. Because air was put into your colon during the procedure, expelling air from your rectum (passing gas or farting) is normal. 4. You may not have a bowel movement for 1-3 days because of the colonoscopy prep. This is normal. 5. Go directly to the emergency room if you notice any of the following: Develop chills (warm to touch), or if you have a thermometer and your temperature is above 101 Difficulty breathing or difficultly swallowing Persistent vomiting Severe abdominal pain, other than gas cramps Severe chest pain Black, tarry stools Any bleeding ? exceeding one tablespoon 6. Call your physician if the site where your intravenous was started becomes red, swollen, painful, and warm to touch. 7. Your physician has reviewed your pre-procedure medications. Please continue to take those medications as previously ordered. You will be given specific information/education regarding any changes to your medications before leaving. Activity:: Activity as Tolerated Diet:: As Tolerated Discharge Orders Discharge Orders: Discharge Order (Routine); Ordered 11/13/23 Ordered By: Michael Dobson DS: Diagnosis Discharge Diagnosis (1) Encounter for screening colonoscopy: Status: Acute Asessment and Plan: Negative screening colonoscopy
[2023-11-14 08:30] VITALS: BP 123/62; PULSE 81; RESP 16; TEMP 36.6; O2SAT 100
[2023-11-14] MEDS: Lactated Ringers 1,000 ML 80 ML IV (08:45)
--- NOTE | 2023-11-14 09:34 | W.ANESPRE ---
General Info Date of Service Date Performed: 11/14/23 Height: 5 ft 4 in Weight: 61.8 kg Body Mass Index (BMI): 23.3 Surgical Procedure: Operation Date: 11/14/23 09:35 Proposed Procedure Side Surgeon helder Dobson MD Meds Allergies and Home Medications Allergies Allergy/AdvReac Type Severity Reaction Status Date / Time No Known Allergies Allergy Verified 11/14/23 08:29 Home Medication ?Medication ?Instructions ?Recorded lamotrigine 200 mg tablet 100 mg PO HS 08/09/12 multivitamin-ferrous 1 ea PO DAILY 04/10/15 fumarate-folic acid 18 mg-400 mcg tablet (Daily Multiple) calcium-vitamin D2-soybean 500 1 tab PO DAILY 01/08/22 mg-100 unit-28 mg tablet cholecalciferol (vitamin D3) 25 25 mcg PO DAILY 01/08/22 mcg (1,000 unit) capsule clobetasol 0.05 % topical cream 1 applic topical BID PRN 01/08/22 diphenhydramine 25 1 tab PO QHS PRN 01/08/22 mg-acetaminophen 500 mg tablet (Tylenol PM Extra Strength) ibuprofen 200 mg tablet (Advil) 400 mg PO Q6H PRN 01/08/22 loratadine 10 mg tablet (Claritin) 10 mg PO DAILY 01/08/22 melatonin 10 mg-lemon balm leaf 1 tab PO HS 01/08/22 extract 1 mg tablet omeprazole 20 mg capsule,delayed 20 mg PO HS 01/08/22 release valacyclovir 1 gram tablet 1,000 mg PO DAILY PRN 01/08/22 (Valtrex) citalopram 20 mg tablet 20 mg PO DAILY 01/28/22 Bacillus coagulans-inulin 1 1 cap PO DAILY 08/28/23 billion cell-250 mg capsule (Probiotic with Prebiotic) Current Visit Medications: Current Medications Generic Name Dose Route Start Last Admin Trade Name Freq PRN Reason Stop Dose Admin Hyoscyamine Sulfate 0.125 mg 11/13/23 13:25 Hyoscyamine 0.125 Mg Sl/Oral/Chew SL 12/13/23 13:24 DIRECTED PRN Ringer's Solution 1,000 mls @ 80 mls/hr 11/14/23 06:00 11/14/23 08:45 IV 11/14/23 23:59 80 mls/hr INFUSION JAVID Administration IV Miscellaneous Supplies 1 each 11/14/23 06:00 Iv Access IV 11/14/23 23:59 DIRECTED JAVID Sodium Chloride 0 ml 11/14/23 06:00 Normal Saline Flush 10 Ml Syr IV 11/14/23 23:59 PRN PRN Sodium Chloride 0 ml 11/14/23 06:00 Normal Saline 10 Ml Vial IJ 11/14/23 23:59 DIRECTED PRN Sterile Water 0 ml 11/14/23 06:00 Water,Injection,Sterile 10 Ml Vial IJ 11/14/23 23:59 DIRECTED PRN PFSH Active Problems Active Problems: Problem Status Onset Code Encounter for screening colonoscopy Acute Z12.11 Osteoporosis Chronic M81.0 History of creation of ostomy Acute Z93.9 Hepatic hemangioma Acute D18.03 Hypertension Chronic I10 Glaucoma Chronic H40.9 History of Holm's esophagus Acute Z87.19 Insomnia Acute Depression Chronic Seizure disorder Resolved Squamous cell carcinoma of anal margin Resolved ~2012 Constipation by outlet obstruction Resolved Menstrual migraine Acute 01/25/13 G43.829 Medical History Medical History Anxiety Surgical History Surgical History History of rectal surgery removal of anus secondary to anal cancer. History of esophagogastroduodenoscopy (EGD) (~01/2022) 2019 History of colonoscopy (~2016) Tobacco Smoking/Tobacco Use Status: Never Passive smoking exposure: No Alcohol Alcohol Intake: current Alcohol intake frequency: a few times a week Substance Use Substance use: Never Substance use type: does not use Prental History History 2 Para 2 Hx # Term Pregnancies 2 Multiple births Hx # Pregnancies Ectopic pregnancies AB induced Hx Number of Living Children 1 AB spontaneous Vital Signs and Lab Results Vital Signs Most Recent Vital Signs in EMR: Most Recent Vital Signs Temp Pulse Resp BP Pulse Ox 36.6 C 81 16 123/62 100 11/14/23 08:30 11/14/23 08:30 11/14/23 08:30 11/14/23 08:30 11/14/23 08:30 Lab Results Blood Type / Crossmatch: No Data to Display Complete Blood Count: No Data to Display Complete Metabolic Panel: No Data to Display Liver Function Panel: No Data to Display Coagulation Panel: No Data to Display Cardiac Panel: No Data to Display Arterial Blood Gas: No Data to Display Venous Blood Gas: No Data to Display Pancreas Panel: No Data to Display Thyroid Panel: No Data to Display Infectious Disease: No Data to Display Blood Cultures: No Data to Display Toxicology Panel: No Data to Display Anesthesia Assessment and Plan Anesthesia History Personal History: No History of Anesthesia Complications Family History: No Family History of Anesthesia Complications Exercise Tolerance Exercise Tolerance: Metabolic Equivalents>4 Pertinent Negatives Pertinent Negatives: No Symptoms of GERD, No Major Cardiovascular Symptoms or Complaints and No Major Pulmonary Symptoms or Complaints Cardiac & Pulmonary Exam Cardiac Exam: Normal S1/S2 Heart Sounds Pulmonary Exam: Clear Bilateral Breath Sounds Implantable Cardiac Device Does patient have a Pacemaker or an ICD?: No Airway Exam Known Difficult Airway: No Mallampati Class: 1 Mouth Opening: Normal (> 3cm) Thyromental Distance: Greater than 3 cm Neck Range of Motion: Full ROM Neck Circumference: Normal Teeth Condition: Normal Dentition ASA Classification ASA Score: ASA 2 Emergency Case?: No NPO Status NPO Status: NPO Clears >2 hours, Solids >8 hours Anesthesia Plan Resuscitation Status: Full Code Anesthesia Technique: General Anesthesia Airway Planned: Natural Airway Monitors Used: Standard Monitors Preoperative Comments:: Last seizure 2005. No change in medications
[2023-11-14 09:36] VITALS: BMI 23.3
[2023-11-14 10:31] VITALS: BP 74/61; PULSE 73; RESP 16; TEMP 36.1; O2SAT 99
[2023-11-14 10:39] VITALS: BP 101/78; PULSE 71; RESP 16; TEMP 36.3; O2SAT 100
--- NOTE | 2023-11-14 10:58 | W.ANESPOSTOP ---
Postoperative Evaluation Date, Time and Location Date Performed: 11/14/23 Time Performed: 10:34 Patient Location: Day Surgery Unit Vital Signs Most Recent Imported Vital Signs: Most Recent Vital Signs Temp Pulse Resp BP Pulse Ox 36.3 C L 71 16 101/78 100 11/14/23 10:39 11/14/23 10:39 11/14/23 10:39 11/14/23 10:39 11/14/23 10:39 Pain Score Most Recent Pain Score: Most Recent Pain Score Pain Level 0 11/14/23 08:30 Assessment Mental Status: Awake (Alert & Oriented to Patient Baseline) Airway and Respiratory Function: Patent airway with normal (patient baseline) respiratory exam Cardiovascular Function: Hemodynamically Stable Hydration Status: Adequately Hydrated Nausea & Vomiting: No Nausea or Vomiting Pain: Pt. Denies Any Pain Peripheral Nerve Block: Patient did not receive a nerve block
== END 2023-11-14 10:51 | disposition home or self-care (01) ==
LOC: SUR 07:42
PROVIDERS: PCP Nurse Practitioner Family; Visit Provider Surgery
PROC: 0DJD8ZZ Inspection of Lower Intestinal Tract, Via Natural or Artificial Opening Endoscopic (ICD-10-PCS; CPT 45378; principal; 2023-11-14 09:30)
DX: Z12.11 Encounter for screening for malignant neoplasm of colon (principal); K57.32 Diverticulitis of large intestine without perforation or abscess without bleeding
CPT/HCPCS: 45378; J2704

== ENCOUNTER 2023-12-30 12:32 | Outpatient (REF) | payer BC, SELFPAY ==
[2023-12-30 15:04] LABS: ALT 25 U/L (14-59); AST 19 U/L (15-37); Albumin 3.8 g/dL (3.4-5.0); Alkaline Phosphatase 101 U/L (46-116); Anion Gap 6.6 mmol/L (3-11); BUN 20 mg/dL (7-18); Bilirubin, Total 0.43 mg/dL (0.2-1.0); CO2 30.4 mmol/L (21.0-32.0); Calcium 9.4 mg/dL (8.5-10.1); Chloride 109 mmol/L (98-107); Estimated GFR 64.49 (mL/min/1.73m2); Glucose 101 mg/dL (74-106); Magnesium 2.2 mg/dL (1.8-2.4); Potassium 5.1 mmol/L (3.5-5.1); Sodium 146 mmol/L (136-145); Total Protein 7.5 g/dL (6.4-8.2); Vitamin B12 556 pg/mL (193-986); Vitamin D 25 Total 50.3 ng/mL (30-100)
[2024-01-01 17:19] LABS: Lamotrigine 2.6 mcg/mL (3.0-15.0)
== END 2023-12-30 12:33 | disposition home or self-care (01) ==
LOC: NCHCN 12:32
PROVIDERS: PCP Nurse Practitioner Family; Visit Provider Nurse Practitioner Family
DX: I10 Essential (primary) hypertension (principal); K22.70 Barrett's esophagus without dysplasia; M81.0 Age-related osteoporosis without current pathological fracture
CPT/HCPCS: 80053; 80175; 82306; 82607; 83735

== ENCOUNTER 2024-02-05 02:28 | Outpatient (CLI) | payer BC, SELFPAY ==
--- NOTE | 2024-02-05 12:54 | DI.MAMMO_ITS ---
Exam(s) MAMMO SCREENING EXAM: MAMMO SCREENING CLINICAL HISTORY: SCREENING MAMMO Z12.31. TECHNIQUE: Bilateral full field digital CC and MLO mammographic images were obtained with 3D tomosyn thesis and utilizing computer aided detection (CAD). COMPARISON: Prior mammograms were reviewed. FINDINGS: Fibroglandular tissue pattern is again noted be moderately dense, this somewhat decreasing the sensit ivity of the mammogram for finding hidden underlying lesions. No new findings in left breast. In the right breast on the CC view view there is an asymmetric density-possible nodule measuring 7 x 5 mm located 6 cm in from the nipple on the CC view, lateral of center. Spot compression view recomm ended. There are no malignant-appearing microcalcification groups in this region or elsewhere in either [address]. Scattered benign calcifications are again noted. There is no significant architectural distortion nor skin thickening-retraction. IMPRESSION: 1.Dense bilateral fibroglandular tissue. No radiographic evidence of malignancy in the left breast. 2. Asymmetric density-possible 7 x 5 mm nodule in the right breast. Spot compression CC view and ul trasound recommended. BI-RADS Category 0 - Incomplete: Need additional imaging evaluation Breast Density - Category C - Heterogeneously dense Breast density Category C or D implies that the patient has dense breast tissue. Dense breast tissue can make it harder to find cancer on a mammogram. Dense breast tissue is also associated with an incr eased risk of breast cancer. This information about the result of the mammogram report was provided to the patient to raise their awareness. Use this report when you speak with the patient about their risks for breast cancer, which includes their family history. At that time, you may recommend additional screening tests (Ultrasoun d or MRI) as these tests may add significant information. A negative radiographic report should not delay biopsy if a dominant or clinically suspicious mass is present. Up to ten percent of cancers are not identified on mammography. A negative report may reinforce clinical impression. Adenosis and dense breasts may obscure an underlying neoplasm. False positive reports average 6 to 10%. Patient will receive a letter notifying them of these results.
== END 2024-02-05 02:48 ==
LOC: DI 02:28
PROVIDERS: PCP Nurse Practitioner Family; Visit Provider Nurse Practitioner Family
DX: Z12.31 Encounter for screening mammogram for malignant neoplasm of breast (principal); R92.323 Mammographic fibroglandular density, bilateral breasts; D24.1 Benign neoplasm of right breast
CPT/HCPCS: 77063; 77067

== ENCOUNTER 2024-02-16 02:21 | Outpatient (CLI) | payer BC, SELFPAY ==
--- NOTE | 2024-02-16 | DI.MAMMO_ITS ---
Exam(s) MG MAMMO SCREEN CALL BACK UNI US BREAST RT LIMITED EXAM: MG MAMMO SCREEN CALL BACK UNI CLINICAL HISTORY: ASYMMETRIC DENSITY-POSSIBLE NODULE RT BREAST R92.8 ABNL MAMMO. TECHNIQUE: Craniocaudal spot compression digital Mammography views of the rightbreast with Tomosynth esis and right breast ultrasound. COMPARISON: MG Screening Bilat Mammo from 05/24/2014 MG Screening Bilat Mammo from 06/19/2016 MG MG mammo screening from 03/24/2018 MG MG MAMMO SCREENING from 04/12/2020 MG MG MAMMO SCREENING from 02/03/2023 US US BREAST RT LIMITED from 02/16/2024 FINDINGS: Mammography/Tomosynthesis: Masses: None seen. Architectural Distortion: None seen. Microcalcifictions: No suspicious pleomorphic-type are seen. Skin Thickening/Nipple Retraction: None. Right breast US: Echotexture: Normal appearance of the glandular tissue. Shadowing: No suspicious foci. Cyst: None. Solid lesions: None seen. Ductal dilation: None. IMPRESSION: 1. No evidence of malignancy is noted. 2. Unless there is more urgent need, follow-up screening mammography is recommended, as per [employer] guidelines. 3. The findings were discussed with the patient on the date of the examination. BI-RADS Category 1 - Negative Breast Density - Category C - Heterogeneously dense A mammogram that demonstrates density of C or D indicates the patient's breast tissue is dense. Dense breast tissue is very common and is not abnormal, but dense breast tissue can make it harder to find cancer on a mammogram. Also, dense breast tissue may increase their breast cancer risk. This informa tion about the result of the mammogram report was provided to the patient to raise their awareness. U se this report when you speak with the patient about their risks for breast cancer, which includes th eir family history. At that time, you may recommend for more screening tests (Ultrasound or MRI) as t hey might be useful based on their risk. A negative radiographic report should not delay biopsy if a dominant or clinically suspicious mass is present. Up to ten percent of cancers are not identified on mammography. A negative report may reinforce clinical impression. Adenosis and dense breasts may obscure an underlying neoplasm. False positive reports average 6 to 10%. Patient will receive a letter notifying them of these results.
== END 2024-02-16 02:41 ==
PROVIDERS: PCP Nurse Practitioner Family; Visit Provider Nurse Practitioner Family
DX: R92.8 Other abnormal and inconclusive findings on diagnostic imaging of breast (principal); R92.333 Mammographic heterogeneous density, bilateral breasts
CPT/HCPCS: 76642; 77063; 77067

== ENCOUNTER 2024-09-06 13:03 | Outpatient (REF) | payer BC, SELFPAY | END 2024-09-06 13:04 | disposition home or self-care (01) | LOC: LBN 13:03 | PROVIDERS: PCP Nurse Practitioner Family; Visit Provider Obstetrics & Gynecology | DX: Z12.4 Encounter for screening for malignant neoplasm of cervix (principal) | CPT/HCPCS: 88142; 87624 ==

== ENCOUNTER 2024-11-16 17:46 | Outpatient (REF) | payer BC, SELFPAY | END 2024-11-16 17:47 | disposition home or self-care (01) | LOC: LBN 17:46 | PROVIDERS: PCP Nurse Practitioner Family; Visit Provider Obstetrics & Gynecology | DX: R87.89 Other abnormal findings in specimens from female genital organs (principal); R87.612 Low grade squamous intraepithelial lesion on cytologic smear of cervix (LGSIL) | CPT/HCPCS: 88305 ==

== ENCOUNTER 2024-12-21 10:07 | Outpatient (REF) | payer BC, SELFPAY ==
[2024-12-21 15:42] LABS: ALT 35 U/L (14-59); AST 20 U/L (15-37); Albumin 3.7 g/dL (3.4-5.0); Alkaline Phosphatase 117 U/L (46-116); Anion Gap 8.4 mmol/L (3-11); BUN 21 mg/dL (7-18); Bilirubin, Total 0.3 mg/dL (0.2-1.0); CO2 30.6 mmol/L (21.0-32.0); Calcium 9.0 mg/dL (8.5-10.1); Calculated LDL 176 mg/dL (<100); Chloride 104 mmol/L (98-107); Cholesterol 257 mg/dL (<200); Estimated GFR 83.78 (mL/min/1.73m2); Glucose 114 mg/dL (74-106); HDL Cholesterol 69 mg/dL (>or=50); Magnesium 2.2 mg/dL (1.8-2.4); Potassium 5.0 mmol/L (3.5-5.1); Sodium 143 mmol/L (136-145); Total Protein 7.2 g/dL (6.4-8.2); Triglyceride 64 mg/dL (<150); Vitamin B12 472 pg/mL (193-986); Vitamin D 25 Total 44 ng/mL (30-100)
== END 2024-12-21 10:08 | disposition home or self-care (01) ==
LOC: NCHCN 10:07
PROVIDERS: PCP Nurse Practitioner Family; Visit Provider Nurse Practitioner Family
DX: K22.70 Barrett's esophagus without dysplasia (principal); R56.9 Unspecified convulsions; E78.5 Hyperlipidemia, unspecified; M81.0 Age-related osteoporosis without current pathological fracture
CPT/HCPCS: 80053; 80061; 80175; 82306; 82607; 83735